=== PATIENT | male | born 1935 | race Caucasian/White ===

== ENCOUNTER 2025-04-12 16:09 | Emergency (ER) | payer OTHER, SELFPAY ==
[2025-04-12] VITALS (14 sets, daily range): BP systolic 93–125; BP diastolic 51–66; PULSE 86–99; RESP 13–24; TEMP 36.7; O2SAT 94–97; BMI 25.0
--- NOTE | 2025-04-12 16:18 | EKG_ITS ---
[address] [address] Test Date: 2025-04-12 Pat Name: Chris Cazares Department: Room: Gender: Male [employer]: osito : 1935 Requested By: Order Number: [id number] Reading MD: Ranjeet Jara MD Measurements Intervals [place] Rate: 98 P: 55 WV: 176 QRS: 68 QRSD: 130 T: 39 QT: 380 QTc: 485 Interpretive Statements Normal sinus rhythm with sinus arrhythmia Right bundle branch block NO PRIOR TRACING Electronically Signed On 04-13-2025 10:17:43 PST by Ranjeet Jara MD
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
--- NOTE | 2025-04-12 17:13 | DI.CT.S_ITS ---
PROCEDURE: CT PEL WO CON INDICATIONS: Fall, pelvis pain. Bony TECHNIQUE: Noncontrast 3 mm axial sections acquired through the bony pelvis, with coronal and sagittal reformatting. COMPARISON: None. FINDINGS: Image quality: Excellent. Bones: No acute fractures. Decreased osseous mineralization. Degenerative changes of the visualized lower lumbar spine. Sclerotic appearance of the left inferior pubic ramus (7/39. Additional small focus of sclerosis with right pubic bone near midline (7/34). Soft tissues: Atherosclerotic vascular calcifications. Mild prostatomegaly. Diverticulosis without evidence of acute diverticulitis in the visualized colon. Normal appendix. Small bilateral fat containing inguinal hernias. IMPRESSION: No acute fractures are seen. Sclerosis within left inferior pubic ramus and small focus of sclerosis within the right medial pubic bone. These are nonspecific, underlying metastatic disease cannot definitively be excluded. Recommend clinical correlation and follow-up imaging. Dictated by: Jeremy Sarabia M.D. on 04/12/2025 at 18:06 Approved by: Jeremy Sarabia M.D. on 04/12/2025 at 18:09
--- NOTE | 2025-04-12 17:15 | DI.CT.S_ITS ---
PROCEDURE: CT HEAD/BRAIN WO CON INDICATIONS: Fall. Possible head trauma TECHNIQUE: Noncontrast 4.5 mm thick angled axial sections acquired from the foramen magnum to the vertex, with coronal and sagittal reformats. For radiation dose reduction, the following was used: automated exposure control, adjustment of mA and/or kV according to patient size. COMPARISON: None. FINDINGS: Image quality: Diagnostic. CSF spaces: Basal cisterns are patent. No extra-axial fluid collections. The ventricles are symmetric in size and shape. Brain: No intracranial bleeds or mass effect. There is cerebral volume loss, with resultant ventricular and sulcal prominence. There are periventricular and deep white matter chronic small vessel ischemic changes. There is intracranial internal carotid artery atherosclerosis. Skull and face: Calvarium and visualized facial bones appear intact, without suspicious lesions. Sinuses: Near complete opacification the right maxillary sinus with wall thickening, consistent chronic sinusitis. Other paranasal sinuses and the mastoids are clear. IMPRESSION: No acute intracranial pathology. Dictated by: Jeremy Sarabia M.D. on 04/12/2025 at 18:09 Approved by: Jeremy Sarabia M.D. on 04/12/2025 at 18:10
[2025-04-12 17:48] LABS: Add Manual Diff / Slide Review NO; Hematocrit 36.8 % (41-53); Hemoglobin 12.8 g/dL (13.5-17.5); Lymphocytes Absolute Auto 700 /uL (1100-4500); Mean Corpuscular HGB Conc 34.8 % (30-36); Mean Corpuscular Hemoglobin 29.8 PG (26-34); Mean Corpuscular Volume 85.7 fL (80-100); Platelet Count 214 X10^3/uL (150-400)
[2025-04-12 18:02] LABS: Alanine Aminotransferase 28 IU/L (<50); Albumin 4.6 g/dL (3.5-5.0); Albumin Globulin Ratio 1.8 (1.0-2.8); Alkaline Phosphatase 76 U/L (38-126); Blood Urea Nitrogen 28 mg/dL (9-20); Calcium 10.6 mg/dL (8.4-10.2); Carbon Dioxide 24 mmol/L (22-32); Chloride 99 mmol/L (98-107); Estimated Glomerular Filt Rate 49 mL/min (>60); Globulin 2.5 g/dL (1.7-4.1); Glucose 171 mg/dL (70-99); HEMOLYSIS < 15 (0-50); Potassium 4.3 mmol/L (3.4-5.1); Sodium 136 mmol/L (137-145); Total Protein 7.1 g/dL (6.3-8.2)
--- NOTE | 2025-04-12 18:05 | PC.NURSE ---
Pt's son Fantasma Cazares was updated w/pt consent. Requests he be called back at [phone] when pt is ready for DC.
== END 2025-04-12 22:18 ==
PROVIDERS: Emergency Provider Emergency Medicine
DX: M25.551 Pain in right hip (principal); E11.8 Type 2 diabetes mellitus with unspecified complications; M25.552 Pain in left hip; F03.90 Unspecified dementia, unspecified severity, without behavioral disturbance, psychotic disturbance, mood disturbance, and anxiety; I10 Essential (primary) hypertension; F32.A Depression, unspecified; W18.39XA Other fall on same level, initial encounter
CPT/HCPCS: 36415; 70450; 72192; 80053; 85025; 93005; 99283; 99284